=== PATIENT | male | born 1975 | race Caucasian/White ===

== ENCOUNTER 2018-11-21 11:23 | Emergency (ER) | payer BC ==
[2018-11-21 11:39] VITALS: BP 145/78; PULSE 87; RESP 18; TEMP 98
[2018-11-21] MEDS ORDERED: LIDOCAINE 1% INJ 10MG/ML (20 ML MDV) SQ ONE (12:11)
--- NOTE | 2018-11-21 12:53 | ED ---
Skin/Abscess/FB HPI - General Chief complaint: Skin/Abscess/Foreign Body Stated complaint: abscess Time Seen by Provider: 11/21/18 12:05 Source: patient, RN notes reviewed Mode of arrival: ambulatory Limitations: no limitations - History of Present Illness Initial comments: 43-year-old male presents emergency Department chief complaint of right superior pubic abscess. Patient states it's been ongoing for several weeks states that it does drain at times and reduced in size but gets larger. Patient reports no fevers or chills. He has not been any treatment for this is no history of MRSA no history of skin infections. - Related Data Previous Rx's Medication Instructions Recorded Cephalexin [Keflex] 500 mg PO Q8HR #21 cap 11/21/18 Allergies Allergy/AdvReac Type Severity Reaction Status Date / Time No Known Allergies Allergy Verified 11/21/18 11:39 Review of Systems ROS Statement: Those systems with pertinent positive or pertinent negative responses have been documented in the HPI. ROS Other: All systems not noted in ROS Statement are negative. Past Medical History Past Medical History: Asthma History of Any Multi-Drug Resistant Organisms: None Reported Past Surgical History: Appendectomy Past Psychological History: No Psychological Hx Reported Smoking Status: Never smoker Past Alcohol Use History: None Reported Past Drug Use History: None Reported General Exam Limitations: no limitations General appearance: alert, in no apparent distress Respiratory exam: Present: normal lung sounds bilaterally. Absent: respiratory distress, wheezes, rales, rhonchi, stridor Cardiovascular Exam: Present: regular rate, normal rhythm, normal heart sounds. Absent: systolic murmur, diastolic murmur, rubs, gallop, clicks GI/Abdominal exam: Present: soft, normal bowel sounds. Absent: distended, tenderness, guarding, rebound, rigid Skin exam: Present: warm, dry, intact, other (Right suprapubic region there is a 1cm and nonfluctuant erythematous abscess) Course Vital Signs 11/21/18 11/21/18 11:37 13:11 Temperature 98.0 F 98.0 F Pulse Rate 87 87 Respiratory 18 18 Rate Blood Pressure 145/78 145/78 O2 Sat by Pulse 99 99 Oximetry Procedures - Incision & Drainage Consent Obtained: verbal consent Site: other (Suprapubic region) Size (cm): 1 Anesthetic Used: lidocaine 1%, without epi Amount (mLs): 8 I&D Cleaning Method: Alcohol Wipe Sterile Field Used?: No Scalpel Used: #11 I&D Drainage Obtained: Pus, Blood Culture Obtained?: No Patient Tolerated Procedure: well, no complications Medical Decision Making - Medical Decision Making 43-year-old male presented for small abscesses suprapubic region. I did offer antibiotic treatment with or without I&D. Patient first twice a day and did well that there'll be minimal drainage. ID was done, minimal drainage patient tolerated well was placed on Keflex return parameters were discussed. Disposition Clinical Impression: Abscess Disposition: HOME SELF-CARE Condition: Stable Instructions (If sedation given, give patient instructions): Abscess Incision and Drainage (ED), Abscess (ED) Additional Instructions: Please return to the Emergency Department if symptoms worsen or any other concerns. Prescriptions: Cephalexin [Keflex] 500 mg PO Q8HR #21 cap Is patient prescribed a controlled substance at d/c from ED?: No Referrals: None,Stated [Primary Care Provider] - 1-2 days Time of Disposition: 12:53
== END 2018-11-21 13:13 | disposition home or self-care (01) ==
LOC: EC 11:23
DX: L02.818 Cutaneous abscess of other sites (principal)
CPT/HCPCS: 99283; 10060; J2001